=== PATIENT | female | born 1995 | race African-American/Black ===

== ENCOUNTER 2017-10-07 18:01 | Emergency (ER) | payer BC, OTHER ==
[2017-10-07 18:31] LABS: #Eosinphils 0.2 thou/uL (0.0-0.7); #Lymphocytes 2.8 thou/uL (1.20-3.40); #Monocytes 0.8 thou/uL (0.11-0.59); #Neutrophils 9.2 thou/uL (1.40-6.50); %Basophils 0.4 % (0.0-1.0); %Eosinophils 1.3 % (0.0-10.0); %Lymphocytes 21.4 % (21.0-51.0); %Monocytes 6.1 % (0.0-10.0); %Neutrophils 70.8 % (42.0-75.0); Hemoglobin 13.3 g/dL (12.0-16.0); Mean Corpuscular HGB CONC 32.7 g/dL (32.0-36.0); Mean Corpuscular Hemoglobin 27.2 pg (27.0-31.0); Mean Corpuscular Volume 83.2 fL (78.0-98.0); Mean Platelet Volume 6.8 fL (7.4-10.4); Platelet Count 328 thou/uL (130-400); RBC Distribution Width 11.6 % (11.5-14.5); White Blood Cell (WBC) Count 12.9 thou/uL (4.8-10.8)
[2017-10-07 18:59] LABS: Bilirubin Negative (Negative); Blood, Urine Negative (Negative); Glucose, Urine (Dipstick) Negative (Negative); Leukocyte Trace (Negative); Nitrite Negative (Negative); Protein, Urine (Dipstick) Negative (Neg-Trace); pH, Urine 7.5 (5.0-9.0)
[2017-10-07 19:01] LABS: Clarity CLEAR (Clear)
[2017-10-07] MEDS ORDERED: Ondansetron ODT 8 MG TAB ONE (19:01)
[2017-10-07 19:09] LABS: Bacteria/HPF 2+ HPF (None Seen); Hyaline Casts/LPF NONE SEEN LPF (0-3 Hyaline); RBC/HPF None Seen HPF (0-3)
--- NOTE | 2017-10-07 21:51 | ULT ---
ULTRASOUND PELVIS TRANSVAGINAL: 10/07/17 HISTORY: Spotting. Vaginal bleeding with . COMPARISON: None. TECHNIQUE: Real time hernández scale, color flow and spectral analysis of the pelvis was performed. Transabdominal an d transvaginal approach. The uterus measures 7.7 x 6.6 x 6.2 cm. Right ovary measures 2.5 x 3.6 x 2.8 cm and left ovary measur es 4.8 x 2.1 x 3.3 cm. Adequate vascular flow to both ovaries. Trace free fluid surrounding the right ovary Single viable intrauterine with average ultrasound age of 6 weeks, 4 days. Estimated date o f delivery 05/29/18. Gestational sac is present with a yolk sac and a pole. heart tones ar e documented at 120 beats per minute. Small subchorionic hemorrhage is present adjacent to the gestational sac. The uterus is retroflexed. IMPRESSION: Single viable intrauterine with small subchorionic hemorrhage. POS: HOME
== END 2017-10-07 21:30 | disposition home or self-care (01) ==
LOC: ERS 18:01
DX: O99.89 Other specified diseases and conditions complicating pregnancy, childbirth and the puerperium (principal); R10.30 Lower abdominal pain, unspecified; O46.91 Antepartum hemorrhage, unspecified, first trimester; Z3A.01 Less than 8 weeks gestation of pregnancy
CPT/HCPCS: 36415; 76856; 81003; 81015; 84702; 85025; 86900; 86901

== ENCOUNTER → 2020-03-08 | Emergency (ER) | payer SELFPAY | LOC: ERS 20:17 | DX: Z53.21 Procedure and treatment not carried out due to patient leaving prior to being seen by health care provider (principal) ==